=== PATIENT | female | born 2000 | race Caucasian/White ===

== ENCOUNTER 2018-10-26 08:30 | Emergency (ER) | payer MEDICAID ==
--- NOTE | 2018-10-26 09:12 | EDPHY ---
H & P Time Seen by Provider: 10/26/18 08:54 HPI/ROS: CHIEF COMPLAINT: Sore throat x2 days HISTORY OF PRESENT ILLNESS: 18-year-old old female complaining of 2 days of sore throat, tonsillar enlargement, subjective fever. No trismus no drooling. No cough. No abdominal pain. No abdominal trauma. No rash. REVIEW OF SYSTEMS: 10 systems reviewed and negative with the exception of the elements mentioned in the history of present illness PAST MEDICAL & SURGICAL HISTORY: pcos SOCIAL HISTORY: Nonsmoker. PHYSICAL EXAM (Prior to examination, patient consented to physical exam, hands were washed and my usual and customary physical exam procedures followed) 1) GENERAL: Well-developed, well-nourished, alert and oriented. Appears to be in no acute distress. 2) HEAD: Normocephalic, atraumatic 3) HEENT: Pupils equal, round, reactive to light bilaterally. Sclera anicteric. Oropharynx: Bilateral tonsils are symmetrically enlarged with white exudate. No pointing of the uvula. No trismus no drooling. No hot potato voice. Ears bilaterally with normal tympanic membranes.] 4) NECK: Full range of motion, no meningeal signs. 5) LUNGS: Clear auscultation bilaterally, no wheezes, no rhonchi, no retractions. 6) HEART: Regular rate and rhythm, no murmur, no heave, no gallop. 7) ABDOMEN: No guarding, no rebound, no focal tenderness, negative McBurney's, negative Neves's, negative Rovsing's, negative peritoneal sign, 8) MUSCULOSKELETAL: Moving all extremities, no focal areas of tenderness, no obvious trauma. No peripheral edema or discoloration. 9) BACK: No CVA tenderness, no midline vertebral tenderness, no fluctuance, no step-off, no obvious trauma, no visual or palpable abnormality. 10) SKIN: No rash, no petechiae. 11) Psychiatric: Patient is oriented X 3, there is no agitation. DIFFERENTIAL DIAGNOSIS: In no particular order, my differential diagnosis includes, but is not limited to, strep pharyngitis, viral pharyngitis, peritonsillar abscess, retropharyngeal abscess or plegmon, mononucleosis, meningitis, Lemierre syndrome. Smoking Status: Never smoked Constitutional: Initial Vital Signs Temperature (C) 37.6 C 10/26/18 08:31 Heart Rate 102 H 10/26/18 08:31 Respiratory Rate 16 10/26/18 08:31 Blood Pressure 145/85 H 10/26/18 08:31 O2 Sat (%) 96 10/26/18 08:31 Allergies/Adverse Reactions: No Known Allergies Allergy (Unverified 10/26/18 08:37) Home Medications: Medication Instructions Recorded Amitriptyline HCl 10/26/18 Amoxicillin/Clavulanate Pot 875 mg PO BID #14 tab 10/26/18 [Augmentin 875 mg tab] Metformin 1000 mg 10/26/18 Naratriptan HCl 10/26/18 Synthroid 10/26/18 Topamax 100MG (*) 10/26/18 methylPREDNISolone [Medrol Dose 4 mg PO DAILY #1 ea 10/26/18 Wade] MDM/Departure - [facility] ED Course/Re-evaluation: Doubt peritonsillar abscess, retropharyngeal phlegmon, Lemierre syndrome. I do not think that imaging indicated at this time. High clinical suspicion for strep pharyngitis. Recommend empiric treatment. Initiating Augmentin, Medrol Dosepak. Patient notes no prior history of adverse reactions steroids. Recommend follow up with ENT. Patient feels comfortable being discharged. All questions and concerns addressed by myself. Patient given my usual and customary discharge precautions and instructions regarding their clinical impression. Care of patient under supervision of secondary supervising physician Dr olvera . - Depart Disposition: Home, Routine, Self-Care Clinical Impression: Strep pharyngitis Condition: Good Instructions: Strep Throat (ED) Additional Instructions: Return to the ER immediately if you cannot swallow, have drooling, fevers, neck stiffness, cannot open your jaw, or any other symptoms that concern you. Prescriptions: Amoxicillin/Clavulanate Pot [Augmentin 875 mg tab] 875 mg PO BID #14 tab methylPREDNISolone [Medrol Dose Wade] 4 mg PO DAILY #1 ea Referrals: Hansel Sims MD [Medical Doctor] - As per Instructions
[2018-10-26 09:42] VITALS: BP 134/76
== END 2018-10-26 09:22 | disposition home or self-care (01) ==
DX: J02.0 Streptococcal pharyngitis (principal)